=== PATIENT | male | born 1970 | race African-American/Black ===

== ENCOUNTER 2023-08-17 12:01 | Emergency (ER) | payer MEDICAID, OTHER ==
[~2023-08-17] VITALS: Ht 177.8 cm; Wt 78.0 kg
[2023-08-17 12:12] VITALS: TEMP 98.4; O2SAT 98
[2023-08-17] MEDS ORDERED: IBUPROFEN 600MG TABLET PO ONE (12:30)
[2023-08-17] MEDS ORDERED: IBUPROFEN 600MG TABLET PO NR (15:16)
[2023-08-17 15:59] VITALS: BP 122/71; PULSE 82; RESP 18
== END 2023-08-17 16:22 | disposition home or self-care (01) ==
LOC: ER 12:20
DX: S49.91XA Unspecified injury of right shoulder and upper arm, initial encounter (principal); V89.2XXA Person injured in unspecified motor-vehicle accident, traffic, initial encounter; Y93.89 Activity, other specified; Y92.89 Other specified places as the place of occurrence of the external cause; Y99.8 Other external cause status
CPT/HCPCS: 73000; 73030; 73060; 99284